=== PATIENT | female | born 1955 | race Caucasian/White ===

== ENCOUNTER → 2023-07-20 14:11 | Outpatient (CLI) | payer MEDICARE, OTHER, SELFPAY ==
[2023-07-20 15:37] LABS: Add Manual Diff / Slide Review NO; Basophils Absolute Auto 0 /uL (0-100); Basophils Percent Auto 0.5 % (0-2); Eosinophils Absolute Auto 100 /uL (0-450); Eosinophils Percent Auto 0.7 % (2-4); Hematocrit 40.8 % (36-46); Hemoglobin 13.6 g/dL (12.0-16.0); Lymphocytes Absolute Auto 2900 /uL (1100-4500); Lymphocytes Percent Auto 35.2 % (25-40); Mean Corpuscular HGB Conc 33.3 % (30-36); Mean Corpuscular Hemoglobin 29.5 PG (26-34); Mean Corpuscular Volume 88.6 fL (80-100); Monocytes Absolute Auto 500 /uL (0-900); Monocytes Percent Auto 6.1 % (3-14); Neutrophils Absolute Auto 4700 /uL (1500-7000); Neutrophils Percent Auto 57.5 % (50-75); Platelet Count 212 X10^3/uL (150-400); Red Blood Cell Count 4.61 X10^6/uL (4.0-5.2); Red Cell Distribution Width 13.6 % (11.6-14.8); White Blood Cell Count 8.1 X10^3/uL (4.5-11.0)
[2023-07-20 15:38] LABS: BUN Creatinine Ratio 23.6 (6-22); Blood Urea Nitrogen 17 mg/dL (7-17); Calcium 9.5 mg/dL (8.4-10.2); Carbon Dioxide 31 mmol/L (22-32); Chloride 103 mmol/L (98-107); Estimated Glomerular Filt Rate > 60 mL/min (>60); Glucose 113 mg/dL (80-110); HEMOLYSIS < 15 (0-50); Potassium 4.1 mmol/L (3.4-5.1); Sodium 139 mmol/L (137-145)
== END ==
PROVIDERS: PCP Family Medicine; Referring Provider Orthopaedic Surgery Foot and Ankle Surgery; Visit Provider Orthopaedic Surgery Foot and Ankle Surgery
DX: Z01.818 Encounter for other preprocedural examination (principal); R73.9 Hyperglycemia, unspecified; Z01.812 Encounter for preprocedural laboratory examination
CPT/HCPCS: 36415; 80048; 83036; 85025; 93005

== ENCOUNTER 2023-10-16 08:48 | Inpatient (IN) | payer MEDICARE, OTHER, SELFPAY ==
[2023-10-16] VITALS (10 sets, daily range): BP systolic 122–175; BP diastolic 58–79; PULSE 75–103; RESP 11–18; TEMP 35.7–36.3; O2SAT 98–100; BMI 27.4
[2023-10-16] MEDS: LACTATED RINGERS 1,000 ML 100 ML IV ×2 (12:19→20:48)
--- NOTE | 2023-10-16 17:25 | SUR.HOLD ---
Per Acute Care nurse, Theresa, patient's blood sugar 85. Patient tells primary nurse that her blood sugar drops fast. Previous blood sugars today according to nursing staff were 40s and 60s. Patient is NPO for pending surgery this evening. PACU nurse notified Anesthesia Provider Renetta James of conversation. Verbal orders received for D10 at 1200 mls an hour, one time dose, now. Notified primary nurse.
[2023-10-16] MEDS: DEXTROSE 10 % IN WATER 250 ML 1200 ML IV (17:30)
--- NOTE | 2023-10-16 17:40 | PM.PREOP ---
Pre-operative Note Interval Note History & Physical reviewed/Exam performed by Physician: Yes Changes to H&P: No H&P completed within 30 days and has changed as indicated here:: Paper H and P printed to be scanned in chart. No changes from this morning.
--- NOTE | 2023-10-16 18:39 | PC.NURSE ---
Patient picked up by Pre op RN after D10 In Water (1/2 bag ) administered via IV. Taken to Pre op area at 1845.
[2023-10-16] MEDS: CLINDAMYCIN 900 MG/50 ML PIGGYBACK 50 MG IV (20:00)
--- NOTE | 2023-10-16 20:10 | SUR.OPER ---
Prone on padded OR bed, head in foam head support, gel chest rolls, gel pad under knees, pillow under lower legs, toes free of pressure, arms secured on padded arm boards at <90 degrees abduction. Safety belt at thigh.
[2023-10-16] MEDS: VANCOMYCIN 1,000 MG VIAL 1000 MG TOP (20:22)
[2023-10-16] MEDS: BUPIVACAINE 0.25% (PF) 30 ML, EPINEPHrine 0.15 MG INJ (20:22)
[2023-10-16] MEDS: ACETAMINOPHEN IV 1,000 MG/100 ML VIAL 400 MG IV (20:32)
--- NOTE | 2023-10-16 21:02 | P.OP_ITS ---
Operative Date/Time/Diagnoses Date of procedure: 10/16/23 Time of procedure: 20:08 Pre-op diagnosis: Surgical wound dehiscence Wound dehiscence right Achilles tendon Post-op diagnosis: same Procedure & Clinicians Procedure: Debridement muscle fascia tendon, skin sharp debridement CPT code 36389 right Modifier 78 Same procedure as scheduled: Yes Indications: Ivon is a 68-year-old female that has a history of a right chronic Achilles tendon rupture she had a secondary repair and FHL transfer on 09/06/2023. She had incision dehiscence that was refractory to local wound care she was indicated for irrigation and debridement. The risks and benefits of the procedure have been discussed with the patient and given the opportunity to ask questions. The risks of surgery include but are not limited to infection, persistence of pain, damage to nerves and blood vessels, need for additional procedures, coverage or wound care, DVT, PE, cardiopulmonary complications and . The patient expressed a thorough understanding of the risks and benefits of surgery and has elected to proceed. Consent was signed. Surgeon: Ami Richard Click Yes if Unassisted: Yes Anesthesia Type: General and Local Operative Notes Findings: Two areas of wound assistance in posterior Achilles wound most distal ones approximately 1.5 cm in length by 1 cm in width. More proximal area of the incision about a 6 mm dehiscence area was fibrinous tissue and 1 central area of the deep FiberWire suture visible. Dehiscence areas were ellipsed sized and removed. Fibrinous tissue was debrided nonviable tendon and tissue was debrided. There was no purulence demonstrated. Visible FiberWire sutures were removed. Skin subcutaneous tissue was mobilized. And after irrigation was closed in a layered fashion. Closure Type: primary Specimen(s): other (Tissue was sent for PCR and culture sent for aerobic and anaerobic from right Achilles) Estimated Blood Loss (mL): 10 Blood products transfused: none Tourniquet time (min): 4 Procedure in detail: The patient was seen in the preoperative unit the site of surgery was marked informed consent confirmed. This was the right lower extremity. She was brought back to the operating room by the anesthesia team positioned supine on the [facility] general anesthetic was administered and the patient was flipped into the prone position on operative table. All bony prominences were well padded. A well-padded thigh tourniquet was applied to the operative extremity. The right lower extremity was prepped and draped in the standard sterile fashion a formal time-out procedure was performed confirming the patient's side and site of surgery administration of appropriate preoperative antibiotic which was 900 mg of clindamycin. All were in agreement. Esmarch was used for exsanguination the tourniquet raised on the thigh to 250 mm of mercury. This was only elevated for 4 minutes because it was acting as a venous tourniquet and so was released and hemostasis achieved. A blade was used to sharply ellipsed to size the areas of fibrinous tissue and reopened the surgical incision at the right Achilles tendon. Subcutaneous dissection carefully elevated the flaps just minimally for mobilization. Underlying fibrinous tissue was removed sharply with a scalpel blade. Exposed FiberWire sutures were cut and removed with a rongeur. The wound was thoroughly explored. There was no deep purulence. Once all exposed nonabsorbable sutures were removed the Achilles was tested there was weak plantar flexion with Oliva but no palpable gap. The cysto tubing was then utilized and 3 L of saline were irrigated through the wound thoroughly once this was completed gloves were changed and new drapes were applied a new instruments that were clean we utilized. The wound was then dressed with powdered vancomycin antibiotic and deep closure with 3-0 PDS suture 4-0 Monocryl and 3-0 nylon suture was applied approximating the incision with complete coverage. Once this was completed 20 cc of 0.25% Marcaine with epinephrine was injected for local anesthesia. Xeroform gauze Kerlix and an Mio wrap were applied for a soft dressing. Drapes removed anesthesia was terminated and the patient was woken and taken to the recovery room in good condition there were no immediate complications from this procedure. All counts were correct. Complications: none Post-operative Condition: stable Disposition: PACU Plan for aftercare: Partial weight-bearing with a boot and heel lift. Limited range of motion neutral dorsiflexion-plantar flexion only. No stretching and dorsiflexion. No Achilles stretching. Aspirin for DVT prophylaxis until full weight-bearing. Sutures will remain in place a minimum of 3 weeks. We will follow up in Dr. Richard clinic for a wound check in 1 week. We will be discharged home tomorrow on oral clindamycin antibiotic while cultures were pending.
--- NOTE | 2023-10-16 21:19 | SUR.PHASEI ---
Patient sitting up talking constantly, alert, pleasant. VSS. Transported to floor via bed in stable condition.
[2023-10-16] MEDS: DOCUSATE 100 MG CAPSULE PO (23:38)
[2023-10-16] MEDS: ASPIRIN EC 81 MG TABLET PO (23:38)
[2023-10-16] MEDS: LOSARTAN 50 MG TABLET 100 MG PO (23:38)
[2023-10-17 00:30] VITALS: BP 125/71; PULSE 81; RESP 18; TEMP 36.2; O2SAT 94
[2023-10-17] MEDS: CLINDAMYCIN 600 MG/50 ML PIGGYBACK 50 MG IV ×2 (03:53→11:49)
[2023-10-17 04:16] VITALS: BP 124/59; PULSE 79; RESP 18; TEMP 36.1; O2SAT 99
[2023-10-17 05:52] LABS: Add Manual Diff / Slide Review NO; Basophils Absolute Auto 0 /uL (0-100); Basophils Percent Auto 0.3 % (0-2); Eosinophils Absolute Auto 200 /uL (0-450); Eosinophils Percent Auto 1.9 % (2-4); Hematocrit 37.3 % (36-46); Hemoglobin 12.7 g/dL (12.0-16.0); Lymphocytes Absolute Auto 3400 /uL (1100-4500); Lymphocytes Percent Auto 32.8 % (25-40); Mean Corpuscular Hemoglobin 30.3 PG (26-34); Mean Corpuscular Volume 89.1 fL (80-100); Monocytes Absolute Auto 600 /uL (0-900); Neutrophils Absolute Auto 6200 /uL (1500-7000); Platelet Count 246 X10^3/uL (150-400); Red Blood Cell Count 4.19 X10^6/uL (4.0-5.2); Red Cell Distribution Width 13.3 % (11.6-14.8); White Blood Cell Count 10.5 X10^3/uL (4.5-11.0)
[2023-10-17 06:00] LABS: BUN Creatinine Ratio 20.3 (6-22); Blood Urea Nitrogen 13 mg/dL (7-17); Calcium 9.2 mg/dL (8.4-10.2); Carbon Dioxide 27 mmol/L (22-32); Chloride 99 mmol/L (98-107); Estimated Glomerular Filt Rate > 60 mL/min (>60); Glucose 92 mg/dL (80-110); HEMOLYSIS < 15 (0-50); Sodium 131 mmol/L (137-145)
[2023-10-17 08:00] VITALS: BP 130/65; PULSE 73; RESP 18; TEMP 36.1; O2SAT 98
--- NOTE | 2023-10-17 08:09 | P.DS_ITS ---
History of Present Illness History of Present Illness Date Patient Seen: 10/17/23 Time Patient Seen: 08:10 Chief complaint: R achilles wound surgical dehiscence Narrative: Ivon is a 68-year-old female that has a history of a right chronic Achilles tendon rupture she had a secondary repair and FHL transfer on 09/06/2023. She had incision dehiscence that was refractory to local wound care she was indicated for irrigation and debridement. Patient is status post irrigation and debridement of right Achilles wound. Says she has no new pain numbness or tingling into her right foot. She has been ambulating with a walker in CAM boot. She is ready to be discharged home. Discharge Providers Provider Date of admission: 10/16/23 08:48 Discharge Date: 10/17/23 Primary care physician: Evelin Bhardwaj DO Consults: 10/16/23 22:16 Consult to Discharge Planning Routine Comment: Consult to Occupational Therapy Evaluate & Treat Comment: Physician Instructions: Evaluate and treat Consult to Physical Therapy Evaluate & Treat Comment: Physician Instructions: Evaluate and Treat Discharge provider: Sina Garcia PA-C Summary Hospital Course Discharge Diagnosis: Surgical wound dehiscence Wound dehiscence right Achilles tendon Hospital Course: Operative Notes Findings: Two areas of wound assistance in posterior Achilles wound most distal ones approximately 1.5 cm in length by 1 cm in width. More proximal area of the incision about a 6 mm dehiscence area was fibrinous tissue and 1 central area of the deep FiberWire suture visible. Dehiscence areas were ellipsed sized and removed. Fibrinous tissue was debrided nonviable tendon and tissue was debrided. There was no purulence demonstrated. Visible FiberWire sutures were removed. Skin subcutaneous tissue was mobilized. And after irrigation was closed in a layered fashion. Closure Type: primary Specimen(s): other (Tissue was sent for PCR and culture sent for aerobic and anaerobic from right Achilles) Estimated Blood Loss (mL): 10 Blood products transfused: none Tourniquet time (min): 4 Status at Discharge Cognitive/behavioral status at discharge: oriented Functional status at discharge: uses cane/walker Overall status at discharge: patient is back to baseline Time Spent with Patient Time spent: Less than 30 minutes Exam Vital Signs (past 8 hours): - 10/17/23 00:30 10/17/23 04:16 10/17/23 08:00 Temperature 97.1 F L 97.0 F L 96.9 F L Pulse Rate 81 79 73 Respiratory Rate 18 18 18 Blood Pressure 125/71 124/59 L 130/65 Pulse Oximetry 94 99 98 Oxygen Delivery Method Room Air Narrative Exam Narrative: Patient is found sitting in her chair eating breakfast. Dressing appears to be well-maintained. Even manipulate all 5 toes. No numbness or tingling over fat pads. Capillary refill is less than 2 seconds Resp Effort & Inspection: normal respiratory effort and able to speak in complete sentences Objective Labs 10/17/23 05:05 10/17/23 05:05 Labs: Laboratory Results - last 24 hr 10/17/23 05:05 WBC 10.5 RBC 4.19 Hgb 12.7 Hct 37.3 MCV 89.1 MCH 30.3 MCHC 34.0 RDW 13.3 Plt Count 246 Neut % (Auto) 59.0 Lymph % (Auto) 32.8 Walton % (Auto) 6.0 Eos % (Auto) 1.9 L Baso % (Auto) 0.3 Neut # (Auto) 6200 Lymph # (Auto) 3400 Walton # (Auto) 600 Eos # (Auto) 200 Baso # (Auto) 0 Sodium 131 L Potassium 4.0 Chloride 99 Carbon Dioxide 27 BUN 13 Creatinine 0.64 Estimated GFR > 60 BUN/Creatinine Ratio 20.3 Glucose 92 Calcium 9.2 PFSH Social History household members: significant other Smoking Status: Never smoker alcohol intake: former Discharge Assessment & Plan Assessment and Plan Assessment: Status post right Achilles tendon irrigation and debridement Plan of Treatment: Patient discharged home. Partial weight-bearing with a boot and heel lift. Limited range of motion neutral dorsiflexion-plantar flexion only. No stretching and dorsiflexion. No Achilles stretching. Aspirin 81mg bid for DVT prophylaxis until full weight-bearing. Sutures will remain in place a minimum of 3 weeks. We will follow up in Dr. Richard clinic for a wound check in 1 week. Prescribed clindamycin 300 mg q6hr for 10 days while cultures are pending. Patient declined any opiates. She is unable to take NSAIDs due to GI bypass. May take acetaminophen up to 3000 mg in a 24 hour peroid in divided doses as needed for pain. Discharge Plan Discharge Plan Patient Disposition: Home Discharge orders & Medications Prescriptions: New clindamycin HCl 300 mg capsule 300 mg PO Q6H Qty: 40 0RF acetaminophen 325 mg Tablet 650 mg PO Q6H PRN (Reason: pain) Qty: 120 0RF aspirin 81 mg Tablet,Delayed Release (Dr/Ec) 81 mg PO BID Qty: 30 0RF Continued alendronate 70 mg tablet 70 mg PO QAM insulin glargine [Basaglar KwikPen U-100 Insulin] 100 unit/mL (3 mL) insulin pen 18 unit SUBCUT QAM Patient Comments: [NO ORIGINAL SIG] levothyroxine 137 mcg tablet 137 mcg PO DAILY Rx Instructions: on hold by provider needs labs and re eval on dosage dapagliflozin propanediol [Farxiga] 5 mg tablet 5 mg PO DAILY Repatha SureClick 140 mg/mL pen injector 140 mg SUBCUT QAM Patient Comments: [NO ORIGINAL SIG] Ozempic 2 mg/dose (8 mg/3 mL) pen injector 2 mg SUBCUT QAM Patient Comments: [NO ORIGINAL SIG] insulin aspart U-100 [Novolog U-100 Insulin aspart] 100 unit/mL Solution 10 unit SUBCUT QAM losartan 100 mg tablet 100 mg PO DAILY Follow up/Referrals: Ami Richard MD [Physician] - (One week after surgery) Evelin Bhardwaj DO [Primary Care Provider] - Diet/Activity/Treatments Diet: Carb-consistent/Diabetic Activity: Partial weight-bearing in boot with heel lift and walker. May also use the knee scooter.-may do ankle range of motion neutral to plantar flexion. No stretching in dorsiflexion. No dorsiflexion above neutral. Keep incision clean dry and intact with surgical dressing in place. Skin/Wound/Dressing Care Report to your healthcare provider any signs of infection, such as:: chills, fever, night sweats, unusual drainage and unusual redness Visit Report/Discharge Packet Instructions: DI for Incision and Drainage of a Joint Stand Alone Forms: Patient Portal/API, Stroke Signs & Symptoms, Surgery Discharge Discharge Data Primary Care Provider: Evelin Bhardwaj
--- NOTE | 2023-10-17 08:55 | PT.IIE ---
Current Diagnoses Disruption of wound, unspecified, initial encounter (10/16/23) Surgery Performed Operation Date: 10/16/23 17:30 Actual Procedures p Debridement of Right Achilles wound dehiscense(Right) - Ami Richard MD Physical Therapy Inpatient Evaluation/Re-Eval M1 PT/OT-IP Prior Functional Status Start: 10/17/23 17:06 Freq: NEEDED Status: Active Protocol: Document 10/17/23 08:55 AB (Rec: 10/17/23 17:20 AB [id number]) Medical Review Prior Functional Status Medical History Reviewed Yes Communication able to make needs known Mobility and Gait pt stated that she has been NWB on RLE for ~ 6 weeks and was just recently allowed PWB before debridement of achilles tendon. stated that she is modified independent with transfers without AD and just stand pivot transfers. sleeps on a recliner with a bedside commode next to recliner and occasionally walks to the toilet only for bowel movement using B crutches. uses a manual w/c for long distance, uneven surfaces. spouse assists pt. Social History Household Members spouse Living Arrangements House Number of Floors (Floors) Two Floors Number of Stairs To Enter/Railing? pt stays on main level of the house ramp to enter Home Environment Standard Height Toilet,Walk in Shower,Ramp Home Equipment Four Wheel Walker,Crutches, Manual Wheelchair,Bedside Commode,Shower Seat without Backrest,Grab Bars Near Toilet ,Grab Bars In Shower Additional Social History Comment pt has a knee scooter but stated that she is not comfortable using it due to the unsteadiness M2 PT-IP Current Condition Start: 10/17/23 17:06 Freq: NEEDED Status: Active Protocol: Document 10/17/23 08:55 AB (Rec: 10/17/23 17:20 AB [id number]) Physical Therapy Current Condition Current Condition Evaluation Date 10/17/23 Treatment Diagnosis s/p R achilles tendon debridement; difficulty in walking Onset Date 10/16/23 M3 PT-IP Subjective Start: 10/17/23 17:06 Freq: NEEDED Status: Active Protocol: Document 10/17/23 08:55 AB (Rec: 10/17/23 17:20 AB [id number]) Subjective Physical Therapy Visit Type Type Initial Evaluation Visit Start Time 08:55 Visit Stop Time 09:35 Number of NUT BLANKER OPERATOR Visits 0 Physical Therapy Visit Comments Patient Comments agreeable to do PT Therapy Pain Assessment Pain Present Pain Present Denied Pain M4 PT-IP Mobility and Gait Start: 10/17/23 17:06 Freq: NEEDED Status: Active Protocol: Document 10/17/23 08:55 AB (Rec: 10/17/23 17:20 AB [id number]) PT-Transfer Assessment Sit to and From Stand Sit to and from Stand Standby Assistance,1 Person Assistance,Use of Upper Extremities Equipment Transfer Assistive Device Gait Belt,Front Wheeled Walker Orthotic/Prosthetic Devices or Brace: No Transfers Transfer Destination Toilet Transfer Technique ambulated Transfer Ability Level of Assist Standby Assistance,1 Person Assistance,Use of Upper Extremities Comments Mobility Comments pt sitting on the chair. obtained PLOF and home set up from pt. pt with R ortho boot on. educated on PWB on RLE and pt is aware. pt completed sit to stand from the chair SBA and ambulated in room ~ 20 ft using FWW SBA. pt can be impulsive. cued for safety. pt sat on the chair. informed regarding use of FWW vs 4WW vs crutches at this time and agreed to use a FWW. stated that she might have one in the storage but if not, will borrow one from [employer]. pt has manual w/c that she uses. pt stated that she was NWB on RLE for ~ 6 weeks prior and is set up at home and with DMEs. pt requested to use the toilet. sit to stand from the chair SBA and ambulated to the toilet using FWW SBA. cued for safety and to slow down. pt completed toileting SBA. sit to stand from the toilet SBA and ambulated to the sink using FWW SBA. able to stand SBA while completing handwashing. pt able to maintain PWB. pt ambulated back to the chair. pt will be using her recliner to sleep on and does not want to do bed mobility. positioned pt on the chair. call light and table placed within reach. pt without further concerns. Gait Assessment Gait Gait Assistance Required: Standby Assistance Distance (Feet) 20 Able to Maintain Weight Bearing Status Yes During Gait Assistive Devices Assistive Device Gait Belt,Front Wheeled Walker Orthotic/Prosthetic Devices or Brace: No Factors Limiting Gait Function Factors Limiting Gait Function Decreased Activity Tolerance, Decreased Strength,Limited Range of Motion,Poor Balance, Poor Safety Awareness PT-Balance Assessment Sitting Balance and Reactions Static Sitting Balance Ability Normal Dynamic Sitting Balance Ability Good Standing Balance and Reactions Static Standing Balance Ability Fair Dynamic Standing Balance Ability Fair Device Used FWW M5 PT-IP Objective Assessments Start: 10/17/23 17:06 Freq: NEEDED Status: Active Protocol: Document 10/17/23 08:55 AB (Rec: 10/17/23 17:20 AB [id number]) Orientation Orientation/Cognition Level of Alertness Alert Orientation Name,Age,Birthday,Month,Date, Year,Day of Week,Place, Situation Language Function Ability No Deficits Noted Safety Awareness Decreased Safety Awareness Memory Description No Deficits Noted Gross Range of Motion Lower Extremity ROM Assessment Right Impaired Impairments R ankle on ortho boot Strength Lower Extremity Strength Assessment Right Impaired Ankle nt Comments Strength Comments RLE : grossly graded 4-/5 Coordination Assessment Gross Coordination Gross Coordination WNL Muscle Tone Muscle Tone WNL Yes M6 PT-IP Treatment Start: 10/17/23 17:06 Freq: NEEDED Status: Active Protocol: Document 10/17/23 08:55 AB (Rec: 10/17/23 17:20 AB [id number]) Physical Therapy Treatment Education Education Provided Precautions,Weight Bearing Status,Safety M7 PT-IP Assessment and Plan Start: 10/17/23 17:06 Freq: NEEDED Status: Active Protocol: Document 10/17/23 08:55 AB (Rec: 10/17/23 17:20 AB [id number]) PT Summary Assessment and Plan Potential Rehabilitation Potential Fair Status of Condition at Evaluation Stable Summary Impairments Pain,ROM,Strength,Balance, Coordination,Sensation,Tone, Cognition,Bed Mobility, Transfers,Gait,Activity Tolerance Assessment Summary pt is a 68 y/o F s/p R achilles tendon debridement POD 1. pt is PWB on RLE. pt has been NWB on RLE for 6 weeks prior to recent procedure and has DMEs and house setup where in she can be modified independent. pt's spouse assists pt at home. pt may go home when medically stable. Goals Transfer Goal Independent Gait Goal Independent,Front Wheel Walker Gait Distance 100 Days to Meet Goals 10 Frequency of Treatment Frequency Of Treatment Once a Day Treatment Plan Physical Therapy Treatment Plan Bed Mobility Training,Transfer Training,Gait Training, Therapeutic Exercise,Balance Retraining,Post Op Education, Discharge Planning,Hot or Cold Pack,Neuromuscular Re-ed, Coordination Retraining,Manual Therapy Precautions Brace R ortho boot Weight Bearing Status Weight Bearing Status Partial Weight Bearing Allowed Weight Bearing Amount (enter % RLE PWB or #) (%) Recommendations To Nursing Amount of Assist Needed 1 Person Assist Discharge Recommendations PT Discharge Recommendations Home with Assistance, Outpatient PT Transportation Needs at Discharge Private Vehicle
[2023-10-17 09:01] VITALS: BP 130/65; PULSE 73
[2023-10-17] MEDS: DOCUSATE 100 MG CAPSULE PO (09:01)
[2023-10-17] MEDS: LOSARTAN 50 MG TABLET 100 MG PO (09:01)
[2023-10-17] MEDS: polyethylene glycoL 3350 17 GM POWD.PACK PO (09:01)
[2023-10-17] MEDS: ASPIRIN EC 81 MG TABLET PO (09:01)
--- NOTE | 2023-10-17 09:27 | CM.DANOTE ---
Initial DCP Assessment Visit Note Reviewed EMR and team rounds for status updates. Met with pt at bedside to introduce self and role, pt was found to be alert/oriented, and able to discuss her preference to d/c home as early as possible today. She lives modified independently in her own home with her spouse in [place]. Her spouse will also be transporting her home. Payor: Medicare Attending: Dr. Richard Pt is a 68 year-old F post-op day 1 from an I&D of her R-Achilles tendon rupture. She had a secondary repair on it on 09/06/23, and has been seen in [facility] for several weeks until the incisions opened and became refractory to wound care. They recommended immediate f/u with Dr. Rodgers for irrigation and debridement in the OR. Pt is in a partial weight bearing boot, and has a knee scooter for mobility for home recovery. She also has a plan for OP PT already scheduled. Pt declines any need for assistance or resources at this time from DCP. Will continue to monitor for any further evolving needs until her departure later this morning. Discharge Planning/Care Management CM Discharge Assessment Start: 10/17/23 09:13 Freq: Status: Active Protocol: Document 10/17/23 09:13 DPL (Rec: 10/17/23 09:27 DPL [id number]) Discharge Planning Assessment Assigned Chemical Worker MARA Ray Advance Directives? No History Provided By Patient,Medical Record Has Patient been admitted in last 30 No days? Prior Living Arrangements House Household Members spouse Type of transporation used prior to Relies on Others admit Independent with ADL's No: modified independent with knee scooter Is patient alert and oriented? Yes Needs Assistance With Home Chores / Shopping Caregiver for Another No Community Services used prior to Wound Care admission: DME Already Rented / Owned Elevated Toilet Seat,Cane Comment knee scooter Patient/Family Preference OP PT Therapy Barriers to Discharge No Discharge Plan Home Community Services Physical Therapy Transportation Arrangement Spouse Referrals Initiated None needed Whiteboard Updated in Patient Room with Yes name and ext. # of Chemical Worker Review Status In Process Please Provide Date Initial DC 10/17/23 Assessment Was Performed
== END 2023-10-17 12:23 | disposition home or self-care (01) | DRG 909 ==
PROVIDERS: Admitting Provider Orthopaedic Surgery Foot and Ankle Surgery; PCP Family Medicine; Referring Provider Orthopaedic Surgery Foot and Ankle Surgery; Visit Provider Orthopaedic Surgery Foot and Ankle Surgery
PROC: 0LBN0ZZ Excision of Right Lower Leg Tendon, Open Approach (ICD-10-PCS; principal; 2023-10-16 17:30)
DX: T81.32XA Disruption of internal operation (surgical) wound, not elsewhere classified, initial encounter (principal); M81.0 Age-related osteoporosis without current pathological fracture; E11.9 Type 2 diabetes mellitus without complications; E03.9 Hypothyroidism, unspecified; I10 Essential (primary) hypertension; Z79.4 Long term (current) use of insulin; Z79.85 Long-term (current) use of injectable non-insulin antidiabetic drugs
CPT/HCPCS: 36415; 80048; 82962; 85025; 87070; 87075; 87205; 87801; 97161; 97530; J0136; J0171; J2704; J3010

== ENCOUNTER → 2023-12-28 13:34 | Outpatient (CLI) | payer MEDICARE, OTHER, SELFPAY ==
[2023-10-16 11:45] VITALS: BMI 27.4
== END ==
LOC: WC 13:43
PROVIDERS: PCP Family Medicine; Referring Provider Orthopaedic Surgery Foot and Ankle Surgery; Visit Provider Physician Assistant
DX: L97.412 Non-pressure chronic ulcer of right heel and midfoot with fat layer exposed (principal); L84 Corns and callosities; R60.0 Localized edema
CPT/HCPCS: 11042; 87070; 87075; 87077; 87205; 99204; 99214

== ENCOUNTER → 2023-12-28 15:17 | Outpatient (CLI) | payer MEDICARE, OTHER, SELFPAY ==
[2023-10-16 11:45] VITALS: BMI 27.4
--- NOTE | 2023-12-28 15:19 | DI.RAD.S_ITS ---
PROCEDURE: XR FOOT RT MIN 3V INDICATIONS: diabetic foot ulcer right plantar heel TECHNIQUE: 3 views of the foot were acquired. COMPARISON: None. FINDINGS: Bones: Mild diffuse osteoporosis noted. No specific radiographic evidence for osteomyelitis. Joints: Arthrodesis across the 2nd, 3rd and 4th PIP joints transfixed by screws appreciated. Joint line remains visible -no evidence of solid osseous union. Alignment is near anatomic. Tiny remote appearing avulsion fracture fragment seen on the lateral view over the 3rd middle phalangeal region. Soft tissues: Moderate diffuse soft tissue swelling noted. Broad ulceration in the plantar soft tissues of the calcaneus noted IMPRESSION: Moderate diffuse soft tissues likely due to cellulitis. No specific radiographic evidence for osteomyelitis. Other chronic findings as described Dictated by: Eagle Cannon M.D. on 12/31/2023 at 10:27 Approved by: Eagle Cannon M.D. on 12/31/2023 at 10:29
== END ==
PROVIDERS: PCP Family Medicine; Referring Provider Physician Assistant; Visit Provider Physician Assistant
DX: E11.621 Type 2 diabetes mellitus with foot ulcer (principal); L97.419 Non-pressure chronic ulcer of right heel and midfoot with unspecified severity
CPT/HCPCS: 11042; 73630; 87070; 87077; 87205; 99214

== ENCOUNTER → 2024-01-04 08:57 | Outpatient (CLI) | payer MEDICARE, OTHER, SELFPAY ==
[2023-10-16 11:45] VITALS: BMI 27.4
== END ==
PROVIDERS: PCP Family Medicine; Referring Provider Orthopaedic Surgery Foot and Ankle Surgery; Visit Provider Physician Assistant
DX: E11.621 Type 2 diabetes mellitus with foot ulcer (principal); L97.412 Non-pressure chronic ulcer of right heel and midfoot with fat layer exposed; E11.42 Type 2 diabetes mellitus with diabetic polyneuropathy; L84 Corns and callosities; M81.0 Age-related osteoporosis without current pathological fracture
CPT/HCPCS: 11042; 99214

== ENCOUNTER → 2024-01-18 09:18 | Outpatient (CLI) | payer MEDICARE, OTHER, SELFPAY ==
[2023-10-16 11:45] VITALS: BMI 27.4
== END ==
LOC: WC 09:19
PROVIDERS: PCP Family Medicine; Referring Provider Orthopaedic Surgery Foot and Ankle Surgery; Visit Provider Physician Assistant
DX: E11.621 Type 2 diabetes mellitus with foot ulcer (principal); L97.412 Non-pressure chronic ulcer of right heel and midfoot with fat layer exposed; L84 Corns and callosities; R60.0 Localized edema
CPT/HCPCS: 11042; 87070; 87075; 87147; 87205; 99214

== ENCOUNTER → 2024-01-21 14:18 | Outpatient (CLI) | payer MEDICARE, OTHER, SELFPAY ==
[2023-10-16 11:45] VITALS: BMI 27.4
== END ==
PROVIDERS: PCP Family Medicine; Referring Provider Orthopaedic Surgery Foot and Ankle Surgery; Visit Provider Surgery
DX: E11.621 Type 2 diabetes mellitus with foot ulcer (principal); L97.412 Non-pressure chronic ulcer of right heel and midfoot with fat layer exposed; L84 Corns and callosities; R60.0 Localized edema
CPT/HCPCS: 29445

== ENCOUNTER → 2024-01-23 08:32 | Outpatient (CLI) | payer MEDICARE, OTHER, SELFPAY ==
[2023-10-16 11:45] VITALS: BMI 27.4
== END ==
PROVIDERS: PCP Family Medicine; Referring Provider Orthopaedic Surgery Foot and Ankle Surgery; Visit Provider Physician Assistant
DX: E11.621 Type 2 diabetes mellitus with foot ulcer (principal); L97.412 Non-pressure chronic ulcer of right heel and midfoot with fat layer exposed; L84 Corns and callosities; R60.0 Localized edema
CPT/HCPCS: 11042; 99214